=== PATIENT | male | born 1975 | race Caucasian/White ===

== ENCOUNTER 2016-10-06 19:08 | Emergency (ER) | payer OTHER ==
[~2016-10-06] VITALS: Ht 165.1 cm; Wt 69.0 kg
[2016-10-06] MEDS ORDERED: LISI10TA3 PO (19:21)
--- NOTE | 2016-10-06 19:32 | PD ---
HPI Chief Complaint: Exposure to Blood/Body Fluids Time Seen by Provider: 19:25 Travel History International Travel<30 days: No Contact w/Intl Traveler<30days: No Traveled to known affect area: No History of Present Illness HPI Patient comes in for evaluation after possible bodily fluid versus lubricant getting in his right eye. He states he was starting a Keita catheter when the patient hit his hand causing fluid to fly in his right eye. Patient is uncertain if it was lubricant or urine. Patient states that he rinsed his eye eyewash station for approximately 30 seconds prior to coming to the emergency department for further treatment and evaluation. Patient reports his eye feels little bit irritated but denies any other symptoms. Denies any change or loss of vision. Reports his tetanus shot is up-to-date. PFSH Past Medical History Hypertension: Yes Social History Alcohol Use: No Tobacco Use: No Substance Use: No Allergies-Medications (Allergen,Severity, Reaction): Coded Allergies: No Known Allergies (Unverified , 10/06/16) Reported Meds & Prescriptions Reported Meds & Active Scripts Active Erythromycin Opth Oint 5 Mg/Gm Oint 1 Applic RIGHT EYE QID 7 Days Reported Lisinopril 10 Mg Tab 10 Mg PO DAILY Review of Systems Except as stated in HPI: all other systems reviewed are Neg Physical Exam Narrative GENERAL: Well-developed, well nourished, in no acute distress, and non-ill appearing. SKIN: Warm and dry. HEAD: Atraumatic. Normocephalic. EYES: Pupils equal and round. EOMI. No scleral icterus. No injection or drainage. ENT: No nasal bleeding or discharge. Mucous membranes pink and moist. NECK: Trachea midline. Supple. No nuclear rigidity. RESPIRATORY: No accessory muscle use. No respiratory distress. MUSCULOSKELETAL: No obvious deformities. No clubbing. No cyanosis. No edema. Full range of motion. NEUROLOGICAL: Awake and alert. No obvious cranial nerve deficits. Motor grossly within normal limits. Normal speech. PSYCHIATRIC: Appropriate mood and affect; insight and judgment normal. Data Data Last Documented VS Vital Signs Date Time Temp Pulse Resp B/P Pulse Ox O2 Delivery O2 Flow Rate FiO2 10/06/16 20:34 83 18 131/84 99 Room Air Orders Eye Irrigation (10/06/16 19:24) [facility] Medical Decision Making Medical Screen Exam Complete: Yes Emergency Medical Condition: Yes Differential Diagnosis Body fluid exposure, chemical exposure, other Narrative Course No evidence of foreign body by history or exam. No history to suspect corneal ulceration as well. There is no evidence of iritis, glaucoma, preseptal cellulitis, periorbital or orbital cellulitis. Will place patient on ophthalmologic antibiotics prophylactically. This was discussed with the patient. The patient was instructed to follow up with employee med or return here if worsened, increased pain, decreased vision, swelling around the eye or as needed. The patient agreed with plan. Patient in no obvious distress upon re-evaluation. Patient refused additional eye irrigation with kenisha lens and normal saline Any questions/concerns in reference to patient diagnosis/condition discussed and clarified prior to patient's discharge. Reinforced sheer importance of close follow up with employee med. Instructed patient to return to ED immediately, if symptoms return /worsen. Pt showed understanding of above instructions. Further instructions and recommendations were detailed in discharge paperwork. Pt ambulated without difficulty out of ED at discharge. Diagnosis Primary Impression: Employee exposure to body fluids Referrals: Employ Med Additional Instructions: Follow-up with employee med 24-48 hours. Take all medication as prescribed. Return to the emergency department if symptoms get worse. Med/Other Pt SpecificInfo: Prescription(s) given Scripts Erythromycin Opth Oint 5 Mg/Gm Oint1 Applic RIGHT EYE QID 7 Days Ref 0 Prov:Katlin Estrada MD 10/06/16 Disposition: 01 DISCHARGE HOME Condition: Stable Mesfin Oshea Oct 06, 2016 19:32
[2016-10-06] MEDS ORDERED: ERYTOIN10 RIGHT EYE (20:20)
[2016-10-06 20:34] VITALS: BP 131/84; PULSE 83; RESP 18; O2SAT 99
== END 2016-10-06 21:01 | disposition home or self-care (01) ==
LOC: NEPB 19:08
DX: T15.91XA Foreign body on external eye, part unspecified, right eye, initial encounter (principal); I10 Essential (primary) hypertension; Z77.21 Contact with and (suspected) exposure to potentially hazardous body fluids; X58.XXXA Exposure to other specified factors, initial encounter; Y99.0 Civilian activity done for income or pay; Y93.F9 Activity, other caregiving
CPT/HCPCS: 99283

== ENCOUNTER → 2017-04-03 | Outpatient (CLI) | payer OTHER ==
[~2017-04-03] MED LIST: ERYTOIN10 RIGHT EYE; LISI10TA3 PO
[2017-04-03 09:39] LABS: SEMEN WET PREP WBC 0-2 /HPF; WET PREP SPERM NONE SEEN /HPF (NONE SEEN)
== END ==
LOC: CLAB 08:59
PROVIDERS: ATTEND Urology
DX: Z30.2 Encounter for sterilization (principal)
CPT/HCPCS: 89321

== ENCOUNTER 2017-04-19 13:49 | Emergency (ER) | payer OTHER ==
[~2017-04-19] VITALS: Ht 165.1 cm; Wt 68.0 kg
[2017-04-19 13:52] VITALS: BP 132/69; PULSE 71; RESP 18; TEMP 98.2; O2SAT 94
[2017-04-19] MEDS ORDERED: PROPARACAINE HCL 0.5% OPHT SOLN 15 ML BTL RIGHT EYE ONE (14:15)
[2017-04-19] MEDS ORDERED: FLUORESCEIN SOD 1 MG STRIP RIGHT EYE ONE (14:15)
--- NOTE | 2017-04-19 14:21 | PD ---
HPI Chief Complaint: Eye Problems/Injury Time Seen by Provider: 14:07 Travel History International Travel<30 days: No Contact w/Intl Traveler<30days: No Traveled to known affect area: No History of Present Illness HPI 41-year-old male [facility] [employer] [place] with report of accidental splashing of valproic acid from a capsule into the right eye while attempting to puncture it for administration. Patient states it was a miniscule amount that he had immediate burning and discomfort in the right eye so he came here for evaluation. He shouldn't states that he still has a feeling of tenseness and like a film on his eye. Pain is minimal and described as a 4/10. Vision is normal at 13/20 bilaterally. Patient has no other complaints. PFSH Past Medical History Medical History: Denies Significant Hx Hypertension: Yes Tetanus Vaccination: < 5 Years Past Surgical History Surgical History: No Previous Surgery Social History Alcohol Use: No Tobacco Use: No Substance Use: No Allergies-Medications (Allergen,Severity, Reaction): Coded Allergies: No Known Allergies (Unverified , 04/19/17) Reported Meds & Prescriptions Reported Meds & Active Scripts Active No Active Prescriptions or Reported Medications Review of Systems Except as stated in HPI: all other systems reviewed are Neg General / Constitutional: No: Fever Eyes: Positive: Redness, Foreign Body Sensation, Pain, Tearing, No: Diploplia, Blurred Vision, Photophobia, Drainage, Blind Spots, Visual changes, Blindness HENT: No: Headaches Cardiovascular: No: Chest Pain or Discomfort Respiratory: No: Shortness of Breath Gastrointestinal: No: Abdominal Pain Genitourinary: No: Dysuria Musculoskeletal: No: Pain Skin: No Rash Neurologic: No: Weakness Psychiatric: No: Depression Endocrine: No: Polydipsia Hematologic/Lymphatic: No: Easy Bruising Physical Exam Narrative GENERAL: Patient is in mild distress. SKIN: Warm and dry. Normal color. Normal turgor. HEAD: Atraumatic. Normocephalic. EYES: Pupils equal and round. No scleral icterus. Right eye has moderate conjunctival injection and mild tearing. Left eye is normal. ENT: No nasal bleeding or discharge. Mucous membranes pink and moist. Pharynx is clear NECK: Trachea midline. Supple CARDIOVASCULAR: Regular rate and rhythm. RESPIRATORY: No accessory muscle use. MUSCULOSKELETAL: Extremities without clubbing, cyanosis, or edema. No obvious deformities. NEUROLOGICAL: Awake and alert. No obvious cranial nerve deficits. Motor grossly within normal limits. Five out of 5 muscle strength in the arms and legs. Normal speech. PSYCHIATRIC: Appropriate mood and affect; insight and judgment normal. Data Data Last Documented VS Vital Signs Date Time Temp Pulse Resp B/P (MAP) Pulse Ox O2 Delivery O2 Flow Rate FiO2 04/19/17 13:52 98.2 71 18 132/69 (90) 94 Orders Orders Proparacaine 0.5% Opth Soln (Alcaine 0.5 (04/19/17 14:15) Fluorescein Strip (Kiila-M-Pzubtc A.T.) (04/19/17 14:15) Erythromycin 0.5% Opth Oint (Ilotycin 0. (04/19/17 14:30) MDM Medical Decision Making Medical Screen Exam Complete: Yes Emergency Medical Condition: Yes Differential Diagnosis Workplace injury. Right eye foreign body. Corneal burn. Corneal abrasion Narrative Course Patient is medically stable at time of exam. Proparacaine drops are placed in the right eye with good anesthetic effect. Fluorescein strip was applied and [place] Lamp exam shows no obvious corneal or scleral injury or burn. Patient is given erythromycin ophthalmic ointment to be applied every 4 hours while awake when necessary. Patient to follow up with workplace health if symptoms do not improve, otherwise patient is to return to regular work starting immediately. Diagnosis Primary Impression: Work related injury Additional Impression: Chemical exposure of eye Referrals: Employ Med as needed Patient Instructions: General Instructions Additional Instructions: Fluorescein strip was applied and [place] Lamp exam shows no obvious corneal or scleral injury or burn. Patient is given erythromycin ophthalmic ointment to be applied every 4 hours while awake when necessary. Patient to follow up with workplace health if symptoms do not improve, otherwise patient is to return to regular work starting immediately. Med/Other Pt SpecificInfo: Prescription(s) given Scripts No Active Prescriptions or Reported Meds Disposition: 01 DISCHARGE HOME Condition: Stable Aidan Payan Apr 19, 2017 14:21
[2017-04-19] MEDS ORDERED: ERYTOIN10 RIGHT EYE (14:28)
[2017-04-19] MEDS ORDERED: ERYTHROMYCIN 0.5% OPTH OINT 3.5 GM TUBO RIGHT EYE ONE (14:30)
== END 2017-04-19 14:40 | disposition home or self-care (01) ==
LOC: NEPK 13:49
DX: S05.91XA Unspecified injury of right eye and orbit, initial encounter (principal); T42.6X1A Poisoning by other antiepileptic and sedative-hypnotic drugs, accidental (unintentional), initial encounter; Y92.239 Unspecified place in hospital as the place of occurrence of the external cause; Y93.89 Activity, other specified; Y99.0 Civilian activity done for income or pay
CPT/HCPCS: 99283